=== PATIENT | male | born 1985 | race Caucasian/White ===

== ENCOUNTER → 2018-11-06 | Outpatient (CLI) | payer BC ==
[~2018-11-06] MED LIST: AMOXICILLIN500 MG PO; ANAPROX DS550 MG PO; ANTIBIOTIC O500 U/GM TP; BACTRIM DS 8001 TA1 PO; BACTROBAN OINT22 GM PO; CIPRO500 MG PO; CLARITIN10 MG PO; COMPAZINE10 MG PO; CORTISPORIN SUS10 ML OT; EES400 MG PO; HYDROCODONE BIT1 T11 PO; KEFLEX500 MG PO; LEVAQUIN750 MG PO; MOTRIN600 MG PO; MOTRIN800 MG PO; NAPROSYN500 MG PO; PHENERGAN25 M1 PO; TESSALON PERLE200 MG PO; VIBRAMYCIN100 MG PO; VICODIN 500 MG-1 TAB PO; ZANTAC150 MG PO; ZITHROMAX Z PA250 MG PO
== END | disposition home or self-care (01) ==
LOC: LAB 12:18
PROVIDERS: Family Medicine
DX: A60.01 Herpesviral infection of penis (principal)